=== PATIENT | female | born 2000 | race Two or more races ===

== ENCOUNTER 2022-06-16 08:40 | Emergency (ER) | payer OTHER ==
[~2022-06-16] VITALS: Ht 157.5 cm; Wt 83.9 kg
== END 2022-06-16 14:33 | disposition home or self-care (01) ==
LOC: ER 08:40
DX: M54.9 Dorsalgia, unspecified (principal)

== ENCOUNTER 2024-02-07 07:51 | Emergency (ER) | payer OTHER ==
[~2024-02-07] VITALS: Ht 157.5 cm; Wt 86.2 kg
[2024-02-07] MEDS ORDERED: RINGERS SOLUTION,LACTATED 1,000 ML IV STA (08:53)
[2024-02-07] MEDS ORDERED: FAMOtidine 10 MG/ML (4ML VIAL) IV STA (08:54)
[2024-02-07] MEDS ORDERED: HYOSCYAMINE SULFATE 0.125 MG TAB.SUBL SL ONE (09:00)
[2024-02-07 09:31] LABS: HEMATOCRIT 44.1 % (36.0-45.00); HEMOGLOBIN 14.9 g/dL (12.0-15.00); MEAN CORPUSCULAR HEMOGLOBIN 28.7 pg (27.00-32.0); MEAN CORPUSCULAR HGB CONC 33.7 g/dl (32.0-36.0); PLATELET COUNT 346 K/uL (150-450); RED BLOOD COUNT 5.18 M/uL (4.00-6.00); RED CELL DISTRIBUTION WIDTH 13.7 % (11.5-14.5)
[2024-02-07 10:04] LABS: PH,URINE 6.5 (5.0-8.0); URINE APPEARANCE Clear; URINE BILIRRUBIN Negative (NEGATIVE); URINE BLOOD Moderate; URINE COLOR Yellow; URINE GLUCOSE Negative (NEGATIVE); URINE LEUKOCYTE Trace; URINE NITRATE Negative; URINE PROTEIN Negative (NEGATIVE); URINE UROBILINOGEN 0.2 E.U./dl
[2024-02-07 10:07] LABS: CALCIUM 9.4 mg/dL (8.5-10.1); CREATININE SERUM 0.67 mg/dL (0.55-1.02); GFR 107.24; POTASSIUM 3.57 mEq/L (3.5-5.1)
[2024-02-07 10:09] LABS: URINE BACTERIA 2431.7 uL (0.0-1933); URINE EPITHELIAL CELLS 33.7 uL (0.0-38.8); URINE RBC 29.1 uL (0.0-20.8); URINE WBC 7.1 uL (0.0-23.2)
[2024-02-07] MEDS ORDERED: METRONIDAZOLE/SODIUM CHLORIDE 500 MG/100 ML PIGGYBACK IV ONE (11:45)
[2024-02-07] MEDS ORDERED: CIPROFLOXACIN IN 5 % DEXTROSE 400 MG/200 ML PIGGYBAG IV ONE (11:45)
== END 2024-02-07 13:37 | disposition home or self-care (01) ==
LOC: ER 07:52
PROVIDERS: General Practice
DX: K52.89 Other specified noninfective gastroenteritis and colitis (principal); Z88.8 Allergy status to other drugs, medicaments and biological substances; Z20.822 Contact with and (suspected) exposure to COVID-19